=== PATIENT | female | born 1960 | race Asian ===

== ENCOUNTER 2016-10-21 00:41 | Emergency (ER) | payer OTHER ==
[~2016-10-21] VITALS: Ht 165.1 cm; Wt 64.4 kg
--- NOTE | 2016-10-21 00:42 | NUR ---
Patient to ER bed 4 to gown for evaluation. Side rails up. Report given to Erika ANDRADE.
[2016-10-21 00:45] VITALS: BP_SYST 94
--- NOTE | 2016-10-21 00:57 | NUR ---
Patient to ER C/O sore throat, dry cough and chills for the past 3 days. Patient states that recently she returned from [facility]. Patient states that she already took tylenol & terraflu without relief. AAOx4, unlabored breathing, mild throat reddness, no signs of acute distress.
--- NOTE | 2016-10-21 01:06 | NUR ---
ER MD Lopezaw at bedside for evaluation
[2016-10-21 01:26] VITALS: BP_SYST 102
--- NOTE | 2016-10-21 01:26 | NUR ---
Patient given written and verbal discharge instructions and verbalizes understanding. ER MD Mathews discussed with patient the results and treatment provided. Patient in stable condition. ID arm band removed. Rx of Augmentin given. Patient educated on pain management and to follow up with PMD. Pain Scale 0/10. Opportunity for questions provided and answered.
== END 2016-10-21 01:26 | disposition home or self-care (01) ==
LOC: SED 00:41
DX: J20.9 Acute bronchitis, unspecified (principal)
CPT/HCPCS: 99283

== ENCOUNTER 2017-10-23 14:08 | Emergency (ER) | payer OTHER ==
[~2017-10-23] VITALS: Ht 167.6 cm; Wt 61.7 kg
[2017-10-23 14:16] VITALS: BP_SYST 102
[2017-10-23 16:52] VITALS: BP_SYST 110
== END 2017-10-23 16:52 | disposition home or self-care (01) ==
LOC: SED 14:08
DX: R05 Cough (principal); R07.89 Other chest pain; M06.9 Rheumatoid arthritis, unspecified
CPT/HCPCS: 71046-TC; 99284

== ENCOUNTER 2017-12-31 12:59 | Emergency (ER) | payer OTHER ==
[~2017-12-31] VITALS: Ht 167.6 cm; Wt 62.6 kg
[2017-12-31 13:19] VITALS: BP_SYST 118
[2017-12-31 14:00] VITALS: BP_SYST 118
== END 2017-12-31 14:00 | disposition home or self-care (01) ==
LOC: SED 12:59
DX: B09 Unspecified viral infection characterized by skin and mucous membrane lesions (principal)
CPT/HCPCS: 99283